=== PATIENT | male | born 1955 | race Caucasian/White ===

== ENCOUNTER 2019-04-10 06:38 | Outpatient (CLI) | payer MEDICARE ==
[~2019-04-10] VITALS: Ht 198.1 cm; Wt 97.3 kg
[2019-04-10 07:00] VITALS: BP 135/63
[2019-04-10] MEDS ORDERED: NS 1,000 ML IV SCH (07:00)
[2019-04-10] MEDS ORDERED: inFLIXimab INJECTION 500 MG in NS 200 ML IV ONE (07:00)
[2019-04-10] MEDS ORDERED: ACETAMINOPHEN 650MG PO PRIOR TO INFUSION PO ONE (07:00)
[2019-04-10] MEDS ORDERED: FILTER 1.2 MICRON (ADULT TPN/MANNITOL/REMICADE) XX ONE (07:00)
[2019-04-10] MEDS ORDERED: diphenhydrAMINE 25 MG CAP PO ONE (07:15)
[2019-04-10 08:01] VITALS: BP 116/55
[2019-04-10 08:40] VITALS: BP 119/61
[2019-04-10 09:00] VITALS: BP 122/60
[2019-04-10 09:20] VITALS: BP 125/66
== END 2019-04-10 09:20 | disposition home or self-care (01) ==
LOC: EDSEX → M INFU 06:38 → MERGE 04-17 07:30
PROVIDERS: ATTEND Internal Medicine Rheumatology
DX: L40.50 Arthropathic psoriasis, unspecified (principal)
CPT/HCPCS: 96413; J1745

== ENCOUNTER → 2019-05-27 | Outpatient (CLI) | payer MEDICARE ==
[2019-05-27 12:36] LABS: BASO # 0.1 10^3/uL (0.0-0.2); BASO % 0.9 % (0.0-1.0); EOS # 0.2 10^3/uL (0.0-0.5); EOS % 3.6 % (0.0-3.0); HEMATOCRIT 35.5 % (42.0-52.0); HEMOGLOBIN 11.6 g/dl (13.5-17.5); LYMPH % 16.1 % (24.0-44.0); MEAN CORPUSCULAR HGB CONC 32.7 g/dl (32.0-36.5); MEAN CORPUSCULAR VOLUME 101.1 fl (80.0-96.0); MONO # 0.6 10^3/uL (0.0-0.8); MONO % 9.1 % (0.0-5.0); NEUTROPHILS # 4.5 10^3/uL (1.5-8.5); NEUTROPHILS % 70.1 % (36.0-66.0); PLATELET COUNT, AUTOMATED 242 10^3/uL (150-450); RED BLOOD COUNT 3.51 10^6/uL (4.30-6.10); WHITE BLOOD COUNT 6.5 10^3/uL (4.0-10.0)
[2019-05-27 13:00] LABS: ALT/SGPT 26 U/L (12-78); BILIRUBIN,TOTAL 0.4 MG/DL (0.2-1.0); BLOOD UREA NITROGEN 12 MG/DL (7-18); C REACTIVE PROTEIN QUANTITATIV 0.81 MG/DL (0.00-0.30); CALCIUM LEVEL 9.7 MG/DL (8.8-10.2); CARBON DIOXIDE LEVEL 29 MEQ/L (21-32); CHLORIDE LEVEL 103 MEQ/L (98-107); CREATININE FOR GFR 1.03 MG/DL (0.70-1.30); GLOMERULAR FILTRATION RATE > 60.0 (>49); GLUCOSE, FASTING 156 MG/DL (70-100); POTASSIUM SERUM 4.8 MEQ/L (3.5-5.1); SODIUM LEVEL 138 MEQ/L (136-145)
== END ==
LOC: M LAB 11:40
PROVIDERS: ATTEND Internal Medicine Rheumatology
DX: L40.50 Arthropathic psoriasis, unspecified (principal)

== ENCOUNTER 2019-05-29 09:48 | Outpatient (CLI) | payer MEDICARE ==
[~2019-05-29] VITALS: Ht 172.7 cm; Wt 97.0 kg
[2019-05-29 09:50] VITALS: BP 127/62
[2019-05-29] MEDS: ACETAMINOPHEN 650MG ER TAB (TYLENOL ARTHRITIS) PO ONE (09:56)
[2019-05-29] MEDS: diphenhydrAMINE 25 MG CAP PO ONE (09:56)
[2019-05-29] MEDS: NS 1,000 ML IV SCH (10:00)
[2019-05-29] MEDS: FILTER 1.2 MICRON (ADULT TPN/MANNITOL/REMICADE) XX ONE (10:17)
[2019-05-29] MEDS: inFLIXimab INJECTION 500 MG in NS 200 ML IV ONE (10:17)
== END 2019-05-29 11:35 | disposition home or self-care (01) ==
LOC: EDSEX → M INFU 09:48 → MERGE 06-12 07:30
PROVIDERS: ATTEND Internal Medicine Rheumatology
DX: L40.50 Arthropathic psoriasis, unspecified (principal)
CPT/HCPCS: 96413; J1745

== ENCOUNTER → 2019-09-02 | Outpatient (CLI) | payer MEDICARE ==
[2019-09-02 11:41] LABS: BASO % 0.7 % (0.0-1.0); EOS # 0.2 10^3/uL (0.0-0.5); HEMATOCRIT 38.2 % (42.0-52.0); HEMOGLOBIN 12.4 g/dl (13.5-17.5); LYMPH % 16.9 % (24.0-44.0); MEAN CORPUSCULAR HEMOGLOBIN 31.6 pg (27.0-33.0); MEAN CORPUSCULAR HGB CONC 32.5 g/dl (32.0-36.5); MEAN CORPUSCULAR VOLUME 97.2 fl (80.0-96.0); MONO # 0.5 10^3/uL (0.0-0.8); MONO % 8.1 % (0.0-5.0); NEUTROPHILS # 4.3 10^3/uL (1.5-8.5); PLATELET COUNT, AUTOMATED 241 10^3/uL (150-450); RED BLOOD COUNT 3.93 10^6/uL (4.30-6.10); WHITE BLOOD COUNT 6.1 10^3/uL (4.0-10.0)
[2019-09-02 12:21] LABS: ALBUMIN 3.9 GM/DL (3.2-5.2); ALT/SGPT 16 U/L (12-78); BILIRUBIN,TOTAL 0.6 MG/DL (0.2-1.0); BLOOD UREA NITROGEN 15 MG/DL (7-18); C REACTIVE PROTEIN QUANTITATIV 0.92 MG/DL (0.00-0.30); CALCIUM LEVEL 9.4 MG/DL (8.8-10.2); CARBON DIOXIDE LEVEL 28 MEQ/L (21-32); CHLORIDE LEVEL 101 MEQ/L (98-107); GLOMERULAR FILTRATION RATE > 60.0 (>49); GLUCOSE, FASTING 265 MG/DL (70-100); POTASSIUM SERUM 4.4 MEQ/L (3.5-5.1); SODIUM LEVEL 136 MEQ/L (136-145); TOTAL PROTEIN 8.1 GM/DL (6.4-8.2)
[2019-09-02 12:50] LABS: VITAMIN B12 LEVEL 1786 PG/ML
[2019-09-02 12:51] LABS: FOLATE > 24.0 NG/ML
[2019-09-02 12:55] LABS: ERYTHROCYTE SEDIMENTATION RATE 41 mm/hr (0-20)
[2019-09-05 14:07] LABS: HOMOCYST(E)INE SERUM 9.6 umol/L (0.0-15.0)
== END ==
LOC: M LAB 11:09
PROVIDERS: ATTEND Internal Medicine Rheumatology
DX: L40.50 Arthropathic psoriasis, unspecified (principal)

== ENCOUNTER 2019-09-05 09:58 | Outpatient (CLI) | payer MEDICARE ==
[~2019-09-05] VITALS: Ht 172.7 cm; Wt 97.0 kg
[2019-09-05] MEDS ORDERED: inFLIXimab INJECTION 500 MG in NS 200 ML IV ONE (10:15)
[2019-09-05] MEDS ORDERED: ACETAMINOPHEN TAB 650MG DOSE (2X325MG) PO ONE (10:15)
[2019-09-05] MEDS ORDERED: NS 1,000 ML IV SCH (10:15)
[2019-09-05 10:40] VITALS: BP 137/63
[2019-09-05] MEDS ORDERED: diphenhydrAMINE 25 MG CAP PO ONE (10:45)
[2019-09-05 10:55] VITALS: BP 124/66
[2019-09-05 11:40] VITALS: BP 122/66
[2019-09-05 12:10] VITALS: BP 120/64
== END 2019-09-05 12:10 | disposition home or self-care (01) ==
LOC: M INFU 09:58
PROVIDERS: ATTEND Internal Medicine Rheumatology
DX: L40.50 Arthropathic psoriasis, unspecified (principal)
CPT/HCPCS: 96413; J1745

== ENCOUNTER 2019-10-17 09:06 | Outpatient (CLI) | payer MEDICARE ==
[~2019-10-17] VITALS: Ht 172.7 cm; Wt 95.8 kg
[2019-10-17] MEDS ORDERED: diphenhydrAMINE INJ 50MG/ML VIAL (J1200) IV PRN (09:30)
[2019-10-17] MEDS ORDERED: methylPREDNISolone INJ 125 MG/2 ML VIAL (J2930) IV PRN (09:30)
[2019-10-17] MEDS ORDERED: diphenhydrAMINE 25MG PO PRIOR TO INFUSION PO ONE (09:30)
[2019-10-17] MEDS ORDERED: EPINEPHrine INJ 1 MG/ML 1ML VIAL IM PRN (09:30)
[2019-10-17] MEDS ORDERED: inFLIXimab INJECTION 500 MG in NS 200 ML IV ONE (09:30)
[2019-10-17] MEDS ORDERED: ALBUTEROL SULFATE 2.5 MG/0.5 ML INH NEB SOLN INH PRN (09:30)
[2019-10-17] MEDS ORDERED: ACETAMINOPHEN 650MG PO PRIOR TO INFUSION PO ONE (09:30)
== END 2019-10-17 11:00 | disposition home or self-care (01) ==
LOC: M INFU 09:06
PROVIDERS: ATTEND Internal Medicine Rheumatology
DX: L40.50 Arthropathic psoriasis, unspecified (principal)
CPT/HCPCS: 96365; J1745

== ENCOUNTER 2019-11-28 08:56 | Outpatient (CLI) | payer MEDICARE ==
[~2019-11-28] VITALS: Ht 172.7 cm; Wt 95.8 kg
[2019-11-28] MEDS ORDERED: ALBUTEROL SULFATE 2.5 MG/0.5 ML INH NEB SOLN INH PRN (10:00)
[2019-11-28] MEDS ORDERED: diphenhydrAMINE 25MG PO PRIOR TO INFUSION PO ONE (10:00)
[2019-11-28] MEDS ORDERED: diphenhydrAMINE INJ 50MG/ML VIAL (J1200) IV PRN (10:00)
[2019-11-28] MEDS ORDERED: inFLIXimab INJECTION 500 MG in NS 200 ML IV ONE (10:00)
[2019-11-28] MEDS ORDERED: NS 1,000 ML IV SCH (10:00)
[2019-11-28] MEDS ORDERED: EPINEPHrine INJ 1 MG/ML 1ML VIAL IM PRN (10:00)
[2019-11-28] MEDS ORDERED: methylPREDNISolone INJ 125 MG/2 ML VIAL (J2930) IV PRN (10:00)
[2019-11-28] MEDS ORDERED: ACETAMINOPHEN 650MG PO PRIOR TO INFUSION PO ONE (10:00)
== END 2019-11-28 10:50 | disposition home or self-care (01) ==
LOC: M INFU 08:56
PROVIDERS: ATTEND Internal Medicine
DX: L40.50 Arthropathic psoriasis, unspecified (principal)
CPT/HCPCS: 96413; J1745

== ENCOUNTER 2020-01-09 09:35 | Outpatient (CLI) | payer MEDICARE ==
[~2020-01-09] VITALS: Ht 172.7 cm; Wt 97.0 kg
[2020-01-09 09:45] VITALS: BP 145/65
[2020-01-09] MEDS ORDERED: diphenhydrAMINE 25MG CAP PO ONE (09:45)
[2020-01-09] MEDS ORDERED: diphenhydrAMINE 50MG/ML VIAL (J1200) IV PRN (09:45)
[2020-01-09] MEDS ORDERED: methylPREDNISolone INJ 125 MG/2 ML VIAL (J2930) IV PRN (09:45)
[2020-01-09] MEDS ORDERED: ALBUTEROL SULFATE 2.5 MG/0.5 ML INH NEB SOLN INH PRN (09:45)
[2020-01-09] MEDS ORDERED: EPINEPHrine INJ 1 MG/ML 1ML AMP IM PRN (09:45)
[2020-01-09] MEDS ORDERED: ACETAMINOPHEN TAB 650MG DOSE (2X325MG) PO ONE (09:45)
[2020-01-09] MEDS ORDERED: inFLIXimab INJECTION 500 MG in NS 200 ML IV ONE (09:45)
[2020-01-09 10:22] VITALS: BP 145/65
[2020-01-09 10:30] VITALS: BP 146/63
[2020-01-09 11:30] VITALS: BP 131/67
== END 2020-01-09 11:30 | disposition home or self-care (01) ==
LOC: M INFU 09:35
PROVIDERS: ATTEND Internal Medicine
DX: L40.50 Arthropathic psoriasis, unspecified (principal)
CPT/HCPCS: 96413; J1745

== ENCOUNTER 2020-02-20 09:42 | Outpatient (CLI) | payer MEDICARE ==
[~2020-02-20] VITALS: Ht 172.7 cm; Wt 97.0 kg
[2020-02-20] MEDS ORDERED: ACETAMINOPHEN TAB 650MG DOSE (2X325MG) PO ONE (10:00)
[2020-02-20 10:06] VITALS: BP 136/62
[2020-02-20 10:14] VITALS: BP 136/62
[2020-02-20 11:00] VITALS: BP 139/72
[2020-02-20] MEDS ORDERED: EPINEPHrine INJ 1 MG/ML 1ML AMP IM PRN (11:00)
[2020-02-20] MEDS ORDERED: diphenhydrAMINE 50MG/ML VIAL (J1200) IV PRN (11:00)
[2020-02-20] MEDS ORDERED: methylPREDNISolone INJ 125 MG/2 ML VIAL (J2930) IV PRN (11:00)
[2020-02-20] MEDS ORDERED: ALBUTEROL SULFATE 2.5 MG/0.5 ML INH NEB SOLN INH PRN (11:00)
[2020-02-20] MEDS ORDERED: diphenhydrAMINE 25MG CAP PO ONE (11:00)
[2020-02-20] MEDS ORDERED: inFLIXimab INJECTION 500 MG in NS 200 ML IV ONE (11:00)
[2020-02-20 11:36] VITALS: BP 126/89
== END 2020-02-20 11:40 | disposition home or self-care (01) ==
LOC: M INFU 09:42
PROVIDERS: ATTEND Internal Medicine
DX: L40.50 Arthropathic psoriasis, unspecified (principal)
CPT/HCPCS: 96413; J1745

== ENCOUNTER 2020-04-02 10:30 | Outpatient (CLI) | payer MEDICARE ==
[~2020-04-02 10:30] MED LIST: diphenhydrAMINE 25MG CAP As Ordered ONE; inFLIXimab 100MG/10ML VIAL (REMICADE) J1745 PER 10MG ONE
[2020-04-02] MEDS ORDERED: ACETAMINOPHEN 325 MG TAB As Ordered ONE (10:31)
[2020-04-02] MEDS ORDERED: diphenhydrAMINE 25MG CAP As Ordered ONE (10:34)
[2020-05-06] MEDS ORDERED: VITRTAB4 PO (10:00)
[2020-05-06] MEDS ORDERED: B-122500 PO (10:00)
[2020-05-06] MEDS ORDERED: GLYB5TA PO (10:00)
[2020-05-06] MEDS ORDERED: HYDR1SOL PO (10:00)
[2020-05-06] MEDS ORDERED: TOPR25TA PO (10:00)
[2020-05-06] MEDS ORDERED: METF10004 PO (10:00)
[2020-05-06] MEDS ORDERED: CLOB0.0548 TOP (10:00)
[2020-05-06] MEDS ORDERED: LOSA25TA14 PO (10:00)
[2020-05-06] MEDS ORDERED: OSTE1TAB2 PO (10:00)
[2020-05-06] MEDS ORDERED: INFL10VL IV (10:00)
[2020-05-06] MEDS ORDERED: ATOR1TAB21 PO (10:00)
[2020-05-06] MEDS ORDERED: NEXI40CA PO (10:00)
[2020-05-06] MEDS ORDERED: SULF500T2 PO (10:00)
[2020-05-06] MEDS ORDERED: ASPI81TA86 PO (10:00)
[2020-05-28] MEDS ORDERED: MAGN400C PO (15:50)
[2020-06-18] MEDS ORDERED: ZOFR4TAB16 PO (14:38)
[2020-06-18] MEDS ORDERED: PROC10TA4 PO (14:38)
[2020-06-22] MEDS ORDERED: MAGICMW SSP (11:17)
[2020-07-16] MEDS ORDERED: HYDR1SOL PO (11:21)
== END 2020-04-02 12:35 | disposition home or self-care (01) ==
LOC: M INFU 10:30
PROVIDERS: ATTEND Internal Medicine
DX: L40.50 Arthropathic psoriasis, unspecified (principal)
CPT/HCPCS: 96413; 96415; J1745

== ENCOUNTER → 2020-04-14 | Outpatient (CLI) | payer MEDICARE ==
[~2020-04-14] MED LIST changes: +ASPI81TA86 PO; +ATOR1TAB21 PO; +B-122500 PO; +CLOB0.0548 TOP; +GLYB5TA PO; +HYDR1SOL PO; +INFL10VL IV; +LOSA25TA14 PO; +MAGICMW SSP; +MAGN400C PO; +METF10004 PO; +NEXI40CA PO; +OSTE1TAB2 PO; +PROC10TA4 PO; +SULF500T2 PO; +TOPR25TA PO; +VITRTAB4 PO; +ZOFR4TAB16 PO; -diphenhydrAMINE 25MG CAP As Ordered ONE; -inFLIXimab 100MG/10ML VIAL (REMICADE) J1745 PER 10MG ONE
--- NOTE | 2020-05-26 08:41 | REP ---
WHOLE BODY PET-CT SCAN: Delay inn reporting results from malfunction of the hospital computer system from malware/ransomeware. TECHNIQUE: Scanning is performed from the vertex of the calvarium to the feet. COMPARISON: Outside CT study of the neck from [facility] dated 04/06/20 that identified a 3 cm soft tissue mass in the soft palate on the right. FINDINGS: NECK AND SUPRACLAVICULAR AREAS: On the CT accompanying the PET scan today, the mass in the soft palate on the right is again identified. On the PET scan, this mass demonstrates hypermetabolic activity with a maximal standard uptake value of 9.03. There are no other hypermetabolic foci in the neck or supraclavicular areas. CHEST: There are no hypermetabolic foci. ABDOMEN, PELVIS AND LOWER EXTREMITIES: There are no hypermetabolic foci. IMPRESSION: The patient's known mass of the soft palate is hypermetabolic. There are no other hypermetabolic foci. The study is performed with 8.44 mCi of F18 FDG. MTDD
== END ==
LOC: M PLARAD 12:00
PROVIDERS: ATTEND Otolaryngology
DX: D37.05 Neoplasm of uncertain behavior of pharynx (principal)
CPT/HCPCS: 78816; A9552

== ENCOUNTER → 2020-05-06 | Outpatient (CLI) | payer MEDICARE ==
--- NOTE | 2020-05-06 12:26 | RADONC.CN ---
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 Diagnosis/Treatment History Oncologic History He has a remote history of tobacco use,having quit 24 years ago. He presented to his PCP Dr. Dai due to concerns of dysphagia and difficulty breathing when he turned his head from side to side. A CT scan was done on 04/06/20 which showed a large lesion in the soft palate on the right. He was referred to Dr. Moser who ordered A PET-CT done 04/17/20 which showed uptake in the lesion in the soft palate and tonsillar fossa on the right without concerning adenopathy. Dr. Moser biopsied the lesion on 04/21/20 and pathology revealed an HPV+ SCC. Interval History Reports he feels well today overall. He has mild dysphagia and is on a soft diet in part because of his poor dentition. He has lost 4 lbs in total since the diagnosis, his appetite is preserved however. He has mild throat pain when he swallows. He has a history of working in the [employer] industry. Past Medical History: DMII GERD HTN Psoriatic arthritis Past Surgical History: OPX biopsy 04/21/20 Family History: Non-contributory Social History: Former smoker quit 20+ years ago, 24 pack year history, does not drink alcohol Allergies / Meds Allergies: Coded Allergies: No Known Allergies (Unverified , 03/13/19) Home Meds Reported Medications Hydrocodone/Acetaminophen (Hydrocodone-Acetamn 7.5-325/15) 118 Ml Solution, 15 ML PO Q4-6HP PRN for pain MDD 90 Milliliter(s) for 7 Days, #630 ML 05/06/20 Sulfasalazine (Sulfasalazine) 500 Mg Tablet, 1.5 GRAMS PO BID for 30 Days, #120 TAB 20 Metoprolol Succinate (Toprol Xl) 25 Mg Tab.er.24h, 1 TAB PO DAILY for 30 Days, #30 TAB 20 Metformin HCl (Metformin HCl) 1,000 Mg Tablet, 1 TAB PO BID for 30 Days, #60 TAB 20 Losartan Potassium (Losartan Potassium) 25 Mg Tablet, 1 TAB PO DAILY for 30 Days, #30 TAB 9/2/20 Infliximab Injection (Remicade) 100 Mg Vial, 100 MG IV, VIAL 05/06/20 Glyburide (Glyburide) 5 Mg Tablet, 2 TAB PO BID for 30 Days, #60 TAB 20 Esomeprazole Magnesium (Nexium) 40 Mg Capsule.dr, 1 CAP PO DAILY for 30 Days, #30 CAP 05/06/20 Cyanocobalamin (Vitamin B-12) (Vitamin B12) 2,500 Mcg Tablet, 1 TAB PO DAILY for 30 Days, #30 TAB 20 Clobetasol Propionate/Emoll (Clobetasol Emollient 0.05% Crm) 0.05% 15GM Cream..g., 1 APLCT TOP BID for 15 Days, #60 GRAM 05/06/20 Vit D3-Vit K/Berberine/Hops (Ostera Tablet) 1 Each Tablet, 1 TAB PO, TAB 05/06/20 Atorvastatin Calcium (Atorvastatin Calcium) 20 Mg Tablet, 1 TAB PO DAILY for 30 Days, #30 TAB 20 Aspirin (Aspir 81) 81 Mg Tablet.dr, 1 TAB PO DAILY for pain for 30 Days, #30 TAB 05/06/20 Iron,Carbonyl/Ascorbic Acid (Vitron-C Tablet) 1 Each Tablet.dr, 1 TAB PO DAILY for 30 Days, #30 TAB 20 Review of Systems General: Reports: Fatigue, Normal Appetite; Denies: Chills, Night Sweats Constitutional: Reports: Weight Loss; Denies: Weakness Eyes: Denies: Pain, Vision change HEENT: Reports: Dysphagia, Sore Throat; Denies: Head Aches, Ear Pain, Sinus Congestion Skin: Denies: Rash, Lesions, Jaundice, Bruising, Other Pulmonary: Denies: Dyspnea, Cough Cardiovascular: Denies: Chest Pain, Palpitations, Edema Gastrointestinal: Denies: Nausea, Vomiting, Abdominal Pain, Diarrhea Genitourinary: Denies: Dysuria, Frequency, Incontinence Hematologic: Denies: Bruising, Petecchia, Enlarged Lymph Nodes Musculoskeletal: Denies: Neck pain, Back pain Neurological: Denies: Weakness, Numbness, Incoordination Psych: Reports: Mood Normal; Denies: Memory Issues, Thoughts of Self Harm General Exam: Positive: Alert, Cooperative, No Acute Distress Eye Exam: Positive: PERRLA, EOMI ENT EXAM: Positive: Mucous membr. moist/pink, Tongue Midline, Nares Patent, Other ENT (Teeth present (5-6) are broken, most extracted previously ); Negative: Pharynx Normal (In the right tonsillar fossa and soft palate there is a large ulcerated lesion with adherent white mucus, no ad bleeding noted. There are no mucosal lesions or floor of mouth lesions present on manual exam. I was unable to palpate the BOT due to a brisk gag. ) Neck Exam: Negative: Thyromegaly, Lymphadenopathy Chest Exam: Positive: Clear to auscultation, Normal air movement Heart Exam: Positive: Rate Normal, Regular Rhythm Abdomen Exam: Positive: Soft; Negative: Tenderness, Mass Extremity Exam: Negative: Edema, Tenderness Skin Exam: Positive: Nl turgor and temperature; Negative: Rash Neuro Exam: Positive: Normal Gait, Normal Speech, Cranial Nerves 3-12 NL Psych Exam: Positive: Mental status NL, Mood NL, Memory Intact Other Physical Findings Flexible laryngoscopy: After obtaining verbal consent flexible laryngoscopy was performed. The right nare was anesthetized with cetacaine and the scope was introduced, the patient felt immediate discomfort so the scope was withdrawn, a moment was taken and the scope then reintroduced and was better tolerated. The nasopharynx was examined and showed no involvement by tumor on the right. The scope was passed into the pharynx and the posterior pharyngeal wall was free of lesions and had adherent mucus. The BOT BL was uninvolved by tumor. The epiglottis was sharp and mobile, the BL pyriform sinuses were clear, the larynx was mobile and free of lesions. The scope was slowly withdrawn without incident. The patient tolerated the procedure well. Diagnostic and Laboratory Diagnostic Review Radiologic images, relevant labs and pathology reports were personally reviewed and discussed with Mr. Sidhu. Assessment and Plan Impression Mr. Sidhu is a 64 year old male with a history of P16+ T3N0M0 SCC of the right soft palate and tonsillar fossa who was referred to the Department of Radiation Oncology for consideration of chemoradiation. Stage Oropharynx HPV+ SCC [id number] Stage II Performance Status ECOG 0 Plan We had an extensive discussion with Mr. Sidhu regarding the diagnosis at hand and available therapeutic options. He has a locally advanced soft palate primary by my estimation at least 5 cm in greatest extent and involving the tonsillar fossa on the right as well. He has mild symptoms attributable to this lesion and no significant weight loss. His remaining dentition is poor and will need to be extracted prior to treatment. I do not think he needs a PEG tube to start as he can swallow adequately. His nutrition and hydration will need to be optimized. Thus we will give him ensure today and associate counsel on adding high calorie foods. I recommend 70 Gy in 35 fractions to the primary with a lower dose to the bilateral elective necks. We will use VMAT to spare the salivary glands and pharyngeal constrictors as able. Concurrent weekly cisplatin will be given due to the bulkiness of the lesion. We discussed the logistics of receiving radiation therapy in detail including the need for a 1-time planning session. Which will occur approximately 1 week following dental extractions which he intends to pursue at [facility] in [place]. We reviewed the side effects of treatment including fatigue, xerostomia, dysphagia, odynophagia, weight loss, taste loss, fibrosis and skin reaction. After discussing the risks, benefits and alternatives to radiation therapy, Mr. Sidhu was amenable to pursuing radiotherapy. All questions were answered to the patient's satisfaction. We instructed the patient that if there were any questions,concerns or changes in clinical status in the interim to contact us. Recommendations 70 Gy 35 fractions with VMAT Simulation pending dental clearance JERE VARELA MD May 06, 2020 12:26
== END ==
LOC: M ONCR 09:19
PROVIDERS: ATTEND General Practice
DX: C05.1 Malignant neoplasm of soft palate (principal); C10.9 Malignant neoplasm of oropharynx, unspecified; E11.9 Type 2 diabetes mellitus without complications; I10 Essential (primary) hypertension; K21.9 Gastro-esophageal reflux disease without esophagitis; R53.83 Other fatigue; Z87.891 Personal history of nicotine dependence

== ENCOUNTER → 2020-06-03 | Outpatient (RCR) | payer MEDICARE | LOC: M ONCR 13:41 | PROVIDERS: ATTEND General Practice | DX: C05.1 Malignant neoplasm of soft palate (principal) ==

== ENCOUNTER 2020-07-03 10:28 | Outpatient (RCR) | payer MEDICARE | END 2020-07-04 | LOC: M ONCR 10:28 | PROVIDERS: ATTEND General Practice | DX: C05.1 Malignant neoplasm of soft palate (principal) ==

== ENCOUNTER → 2020-08-03 | Outpatient (RCR) | payer MEDICARE | LOC: M ONCR 07-06 10:38 | PROVIDERS: ATTEND General Practice | DX: C05.1 Malignant neoplasm of soft palate (principal) ==

== ENCOUNTER 2020-08-07 10:35 | Outpatient (RCR) | payer MEDICARE ==
[2020-08-12] MEDS ORDERED: HYDR1SOL PO (12:26)
[2020-08-21] MEDS ORDERED: HYDR1SOL PO (10:26)
[2020-09-01] MEDS ORDERED: MAGICMW SSP (15:30)
[2020-09-02] MEDS ORDERED: OXYC-141 PO (14:55)
--- NOTE | 2020-09-02 15:02 | RADENCPD ---
Date/Time of Encounter Date of Encounter: Sep 02, 2020 Time of Encounter: 14:59 Encounter Spoke to Tayo, he has been eating with greater ease, however, he still has pain in the throat and some ulceration around his tonsils. His magic mouthwash and liquid norco are helpful but the pain peaks between doses. He should be healing up by now from a mucositis standpoint so I would like to see him and asses his mouth. For pain I will give him a short supply of ER oxycodone, so that he is not having the peaks in pain. I checked his iStop and there are no red flags. I will see him next week. His PET CT is in October as previously scheduled. JERE VARELA MD Sep 02, 2020 15:02
== END 2020-09-03 ==
LOC: M ONCR 10:35
PROVIDERS: ATTEND General Practice
DX: C05.1 Malignant neoplasm of soft palate (principal)

== ENCOUNTER → 2020-09-17 | Outpatient (CLI) | payer MEDICARE ==
[~2020-09-17] MED LIST changes: +OXYC-141 PO
--- NOTE | 2020-09-17 11:47 | RADENCPD ---
Date/Time of Encounter Date of Encounter: Sep 17, 2020 Time of Encounter: 11:38 Encounter Tayo is here for a 1 month global follow up s/p chemoradiation for his T4N0M0 soft palate SCC 70 Gy in 35 fractions completed 08/07/20. He is feeling well overall. Getting dentures fitted next week. He has no resi dual pain or mucositis. He is swallowing without difficulty. Has mild trismus type pain when he opens wide and sometimes mild discomfort in the midline throat when taking solid foods. He finds the magic mouthwash helpful. Tastes are coming back slowly. Appetite is good, he can't wait to eat prime rib once he gets his dentures. Has sensation of BL ear fullness. Had a good holiday in [facility] visiting family. VS Wt 157.8 lbs (from 182 prior to Tx) T 98 P 116 RR 18 BP 117/75 O2 96% Pain 0 Fatigue 0 Exam: Completely resolved radiodermatitis BL necks, no lingering hyperpigmentation, there is expected submental lymphedema. OPX is clear with no thrush or mucositis, the bulky right sided palatal tumor has regressed, there is only pale mucosa and a cavitary non-ulcerated defect remaining. Uvula deviates to the left and is blunted. There is no trismus. Assessment/Plan: Tayo is doing very well, he has recovered from all the acute effects of chemoradiation. His ear fullness is likely eustachian tube dysfunc tion from RT and may resolve spontaneously over the ensuing months or remain chronic. His tastes should come back slowly and we discussed a good goal is to maintain a healthy weight at this point, which he is at currently. I will see him back for his 3 month PET-CT. I will perform laryngoscopy at that time. I have refilled his magic mouthwash JERE VARELA MD Sep 17, 2020 11:47
== END ==
LOC: M ONCR 10:47
PROVIDERS: ATTEND Radiology Radiation Oncology
DX: C05.1 Malignant neoplasm of soft palate (principal)

== ENCOUNTER → 2020-10-16 | Outpatient (CLI) | payer MEDICARE ==
[~2020-10-16] MED LIST changes: +FLUC10TA PO; -GLYB5TA PO; +GLYB5TAB6 PO; +MORP-69 PO
--- NOTE | 2020-10-16 14:49 | RADENCPD ---
Date/Time of Encounter Date of Encounter: Oct 16, 2020 Time of Encounter: 14:31 Encounter Tayo came in for a follow today for concern of ongoing oropharyngeal pain which continues to affect his eating. He is not having dysphagia with this per se, he is able to eat meatloaf, bread and pork chops without choking. He has lost weight recently, he was asked to switch from ensure to glucerna by his primary as his BG control has been poor. He has been taking liquid norco all along and BLM with some positive effect, but he feels that these are largely inadequate when he is eating particularly because this is when the pain is worst. He also has ringing in his ears and hearing loss new since chemoradiation. He would like audiology evaluation. Objective: Wt 149 Lbs (-50 lbs from June 2020) T 98.6 P 120 RR 18 BP 99/69 O2 99% Pain 4 Fatigue 0 Neck is supple, skin lax, minimal submental edema No palpable cervical adenopathy OPX has thrush present dorsal tongue and right gingivobuccal sulcus In the right posterior oropharynx there is no discernible tumor or ulceration but rather a large defect lined by pale mucosa/scar. There is green mucus adherent to this. There is no palpable tumor in the BL tongue bases, buccal mucosa, tongue, FOM and in the region of the prior tumor. Assessment: Ongoing oropharyngeal pain, active thrush, excellent response of primary with signs of active scar formation in the void previously occupied by bulky tumor. I think he would benefit from a long acting narcotic for now which should help him eat more comfortably. I will also treat the thrush and refer to audiology for eval of his hearing loss. Plan: Stop liquid norco Start ER morphine 15 mg BID Continue BLM with meals Diflucan 100 mg x 14 days Audiology referral PET-CT and Follow up in November as previously scheduled JERE VARELA MD Oct 16, 2020 14:49
== END ==
LOC: M ONCR 13:33
PROVIDERS: ATTEND General Practice
DX: C05.1 Malignant neoplasm of soft palate (principal)

== ENCOUNTER → 2020-10-26 | Outpatient (CLI) | payer MEDICARE ==
--- NOTE | 2020-10-28 17:34 | REP ---
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 COMPARISON: Comparison PET-CT study is from April 14, 2020. Comparison soft tissue neck CT April 06, 2020.. TECHNIQUE: Approximately 45 minutes following the intravenous injection of a 15.90 mCi dose of F-18 FDG, three-dimensional PET scintigraphy is acquired from the skull base to the proximal thighs. Triplanar noncontrast CT scanning is acquired through the same anatomic range for attenuation correction, and image registration with scan parameters optimized to minimize radiation exposure to the patient. PET scintigraphy and CT datasets were fused and displayed on a workstation with multiplanar and projection display capability. FINDINGS: Head and neck soft tissues are unremarkable. The previously noted right tonsillar hypermetabolic mass is resolved. No abnormal hypermetabolic uptake is seen in the head and neck soft tissues. No abnormal hypermetabolic uptake is seen within the chest. No pulmonary parenchymal, hilar or mediastinal puma uptake is seen. In the abdomen and pelvis, normal hepatic, splenic, gastrointestinal, and genitourinary FDG accumulation is seen. IMPRESSION: Negative PET scintigraphy. Right tonsillar lesion no longer apparent. No abnormal hypermetabolic uptake. <Electronically signed by Francisco Downs > 10/28/20 [id number]
== END ==
LOC: M PLARAD 10:00
PROVIDERS: ATTEND General Practice
DX: C09.0 Malignant neoplasm of tonsillar fossa (principal)
CPT/HCPCS: 78815; A9552

== ENCOUNTER → 2020-11-11 | Outpatient (CLI) | payer MEDICARE ==
--- NOTE | 2020-11-11 15:35 | RADONC ---
Radiation Oncology Hx/FUP Radiation Oncology Hx/FUP Date of Service: Nov 11, 2020 Pt Identifier Ryan Sidhu is a 64 year old male with a history of smoking and a biopsy- proven HPV+ [id number] SCC of the right soft palate. He completed chemoradiation 70 Gy in 35 fractions on 08/07/20. He is seen today for surveillance and survivorship care. Diagnosis/Treatment History Oncologic History He has a remote history of tobacco use,having quit 24 years ago. He presented to his PCP Dr. Dai due to concerns of dysphagia and difficulty breathing when he turned his head from side to side. A CT scan was done on 04/06/20 which showed a large lesion in the soft palate on the right. He was referred to Dr. Moser who ordered A PET-CT done 04/17/20 which showed uptake in the lesion in the soft palate and tonsillar fossa on the right without concerning adenopathy. Dr. Moser biopsied the lesion on 04/21/20 and pathology revealed an HPV+ SCC. He underwent chemoradiation 70 Gy in 35 fractions with weekly cisplatin from 06/17/20-08/07/20. Recent data: 10/26/20 PET-CT FINDINGS: Head and neck soft tissues are unremarkable. The previously noted right tonsillar hypermetabolic mass is resolved. No abnormal hypermetabolic uptake is seen in the head and neck soft tissues. No abnormal hypermetabolic uptake is seen within the chest. No pulmonary parenchymal, hilar or mediastinal puma uptake is seen. In the abdomen and pelvis, normal hepatic, splenic, gastrointestinal, and genitourinary FDG accumulation is seen. IMPRESSION: Negative PET scintigraphy. Right tonsillar lesion no longer apparent. No abnormal hypermetabolic uptake. Survivorship Test Due Next Last result Notes TSH, T4 6m post-tx, then q1y 03/2021 Carotid US q10 y post-tx 2030 Smoking cessation Assess annually if applicable N/A Quit previously CXR or screening CT q1y once CR confirmed 2021 CBC,CMP, Lipids q1y 03/2021 Interval History Tayo is feeling well. Weight is up. Eating all foods without much difficulty. Occasionally taking liquid norco, using magic mouthwash but less frequently. He has no dry mouth, or mouth pain. He does have some hearing loss in the right ear, continuing after treatment, he has an audiology appointment upcoming. Interestingly since his remicade was held (for RA) prior to diagnosis he has not had a recrudescence of his joint pain. Current Therapy Surveillance Stage Oropharynx HPV+ SCC [id number] Stage II Social History: Former smoker quit 20+ years ago, 24 pack year history, does not drink alcohol Allergies / Meds Allergies: Coded Allergies: No Known Allergies (Unverified , 03/13/19) Home Meds Active Scripts Morphine Sulfate (Morphine Sulfate ER) 15 Mg Tablet.er, 1 TAB PO BID MDD 2 Tablet(s), #60 TAB Prov:JERE VARELA MD 10/16/20 Magic Mouthwash (First-Mouthwash Blm) 1 Ea Susp, 10 ML SSP QID PRN for Throat pain, #240 ML 5 Refills (Diphenhydramine/maalox/lidocaine 1:1:1) May compound if kit unavailable/not covered by insurance Prov:JERE VARELA MD 09/17/20 Reported Medications Esomeprazole Magnesium (Nexium) 40 Mg Capsule.dr, 1 CAP PO DAILY for 30 Days, #30 CAP 05/06/20 Discontinued Scripts Fluconazole (Diflucan) 100 Mg Tablet, 1 TAB PO DAILY for yeast infection for 14 Days, #15 TAB Take 2 tabs day 1, then 1 tab daily to complete 14 days. Prov:JERE VARELA MD 10/16/20 Review of Systems Review of Systems Constitutional: Denies: Chills, Fever, Weakness, Weight Loss Eyes: Denies: Pain HEENT: Denies: Head Aches, Ear Pain, Dysphagia, Post Nasal Drip, Sore Throat Skin: Denies: Rash Pulmonary: Denies: Dyspnea, Cough Cardiovascular: Denies: Chest Pain, Palpitations Gastrointestinal: Denies: Abdominal Pain Endocrine: Denies: Cold Intolerance Musculoskeletal: Denies: Neck pain, Shoulder pain, Back pain Neurological: Denies: Weakness, Numbness Psych: Reports: Mood Normal Physical Examination Vital Signs Wt 155 lbs (from 149 on 10/16/20) T 98 P 102 RR 18 BP 114/72 O2 99% Pain 0 Fatigue 0 General Exam: Positive: Alert, Cooperative, No Acute Distress Eye Exam: Positive: PERRLA, EOMI ENT EXAM: Positive: Atraumatic, Mucous membr. moist/pink, Tongue Midline, Nares Patent, Other ENT (Oral cavity exam: There are no mucosal lesions visible on expection, he is edentulous, there is no thrush. There are no FOM, tonsillar, or BOT lesions on palpation. ); Negative: Pharynx Normal (There is a defect in the region of the prior tumor in the right soft palate ~ 1cm annular, there is pale mucosa surrounding this without mass. ) Neck Exam: Positive: Supple; Negative: Lymphadenopathy Heart Exam: Positive: Rate Normal Abdomen Exam: Positive: Soft Extremity Exam: Negative: Edema Skin Exam: Positive: Nl turgor and temperature Neuro Exam: Positive: Normal Gait, Normal Speech, Cranial Nerves 3-12 NL Psych Exam: Positive: Mental status NL Other Physical Findings Laryngoscopy: The patient provided verbal consent to be scoped. Cetacaine was introduced in the left nostril for anesthesia. The scope was passed easily to the left nasopharynx, there were no lesions. The scope was passed to the oropharynx and there was clear mucus adherent to the posterior pharyngeal wall. The BL BOT were clear with normal appearing mucosa. The BL pyriform sinuses were clear. The epiglottic margin was sharp. The larynx was freely mobile on phonation without any cord asymmetry or lesions noted. The scope was withdrawn and the patient tolerated the procedure well. Diagnostic and Laboratory Diagnostic Review Radiologic images, relevant labs and pathology reports were personally reviewed and discussed with Mr. Sidhu. Assessment and Plan Impression Assessment Mr. Sidhu is a 64 year old male with a history of smoking and a biopsy-proven HPV+ [id number] SCC of the right soft palate. He completed chemoradiation 70 Gy in 35 fractions on 08/07/20. He is seen today for surveillance and survivorship care. He is doing well with a CR on PET-CT as well as FIORDALIZA on comprehensive exam today. Symptomatically he has improved to near pre-treatment baseline. He is a healthy weight. He has no joint pain which is interesting since he has been on Remicade for 20 years, and this was stopped for chemoradiation without resumption. It is possible his weight loss has improved the condition of his joints. He has a manager metal and a follow up in the coming months to discuss this. He also has some hearing loss in the right ear this is likely due to eustachian tube dysfunction from treatment +/- stebbins effect. He is going for hearing assessment in the next week. He will be due for TFTs at next visit as well as another surveillance exam. Performance Status ECOG 0 Plan Follow up in 3 months TFTs at next visit Mr. Sidhu was encouraged to call with questions or concerns in the interim period. Billing Statement Total time of [34] minutes was spent preparing for the visit [3], obtaining HPI [4], examining the patient [7], reviewing diagnostic tests [3], discussing management options [5], coordinating care [2], and writing this note [10]. JERE VARELA MD Nov 11, 2020 15:35
== END ==
LOC: M ONCR 12:53
PROVIDERS: ATTEND General Practice
DX: C05.1 Malignant neoplasm of soft palate (principal)

== ENCOUNTER → 2021-02-17 | Outpatient (CLI) | payer MEDICARE ==
[~2021-02-17] MED LIST changes: +LOSA25TA13 PO; -LOSA25TA14 PO; -PROC10TA4 PO; +PROC10TA5 PO
[2021-02-17 15:11] LABS: BASO % 0.6 % (0.0-1.0); EOS # 0.2 10^3/uL (0.0-0.5); EOS % 2.6 % (0.0-3.0); HEMATOCRIT 38.2 % (42.0-52.0); HEMOGLOBIN 12.6 g/dl (13.5-17.5); LYMPH # 0.6 10^3/uL (1.5-5.0); LYMPH % 9.1 % (24.0-44.0); MEAN CORPUSCULAR HEMOGLOBIN 30.3 pg (27.0-33.0); MEAN CORPUSCULAR VOLUME 91.8 fl (80.0-96.0); MONO # 0.6 10^3/uL (0.0-0.8); MONO % 9.7 % (2.0-8.0); NEUTROPHILS % 77.4 % (36.0-66.0); PLATELET COUNT, AUTOMATED 218 10^3/uL (150-450); RED BLOOD COUNT 4.16 10^6/uL (4.30-6.10); WHITE BLOOD COUNT 6.5 10^3/uL (4.0-10.0)
[2021-02-17 15:18] LABS: ALBUMIN 3.7 GM/DL (3.2-5.2); ALT/SGPT 20 U/L (12-78); BILIRUBIN,TOTAL 0.4 MG/DL (0.2-1.0); BLOOD UREA NITROGEN 32 MG/DL (7-18); CALCIUM LEVEL 9.8 MG/DL (8.8-10.2); CARBON DIOXIDE LEVEL 34 MEQ/L (21-32); CHLORIDE LEVEL 100 MEQ/L (98-107); CREATININE FOR GFR 0.93 MG/DL (0.70-1.30); FREE T4 0.92 NG/DL (0.76-1.46); GLOMERULAR FILTRATION RATE > 60.0 (>49); GLUCOSE, FASTING 99 MG/DL (70-100); POTASSIUM SERUM 4.4 MEQ/L (3.5-5.1); SODIUM LEVEL 136 MEQ/L (136-145); TOTAL PROTEIN 7.5 GM/DL (6.4-8.2)
== END ==
LOC: M ONCR 12:51
PROVIDERS: ATTEND General Practice
DX: C05.1 Malignant neoplasm of soft palate (principal); E11.9 Type 2 diabetes mellitus without complications; Z87.891 Personal history of nicotine dependence; Z92.3 Personal history of irradiation
CPT/HCPCS: 31575; 36415; 80053; 84439; 84443; 85025; G0463

== ENCOUNTER → 2021-02-25 | Outpatient (CLI) | payer MEDICARE ==
[~2021-02-25] MED LIST changes: +ISOVUE-370 76% 100ML VIAL As Ordered ONE; -LOSA25TA13 PO; +LOSA25TA14 PO; +PROC10TA4 PO; -PROC10TA5 PO
--- NOTE | 2021-02-25 18:11 | REPVR ---
PROCEDURE INFORMATION: Exam: CT Neck With Contrast Exam date and time: 02/25/2021 5:59 PM Age: 65 years old Clinical indication: Condition or disease; Cancer; Throat; Prior surgery; Additional info: Soft palete CA ? mets TECHNIQUE: Imaging protocol: Computed tomography images of the neck with contrast. Radiation optimization: All CT scans at this facility use at least one of these dose optimization techniques: automated exposure control; mA and/or kV adjustment per patient size (includes targeted exams where dose is matched to clinical indication); or iterative reconstruction. Contrast material: ISOVUE 370; Contrast volume: 75 ml; Contrast route: INTRAVENOUS (IV); COMPARISON: No relevant prior studies available. FINDINGS: Nasopharynx: Unremarkable. Oropharynx: Unremarkable. No significant tonsillar enlargement. Hypopharynx: Unremarkable. Larynx: Unremarkable. Normal epiglottis. Retropharyngeal space: Unremarkable. Submandibular/Parotid glands: Normal. Glands are normal in size. Thyroid: Normal. No enlarged or calcified nodules. Lymph nodes: Unremarkable. No lymphadenopathy. Trachea: Visualized trachea is unremarkable. Lungs: Unremarkable as visualized. Bones/joints: Mild degenerative changes at C1-C2 and mid cervical spine. Vasculature: Mild atherosclerotic changes in the carotic arteries. Soft tissues: Unremarkable. No significant soft tissue swelling. IMPRESSION: 1. No soft tissue mass or bone destruction demonstrated. 2. Minor changes as described above. Electronically signed by: Ran Seo On 02/25/2021 18:11:02 PM
--- NOTE | 2021-02-25 18:14 | REPVR ---
PROCEDURE INFORMATION: Exam: CT Maxillofacial With Contrast Exam date and time: 02/25/2021 5:59 PM Age: 65 years old Clinical indication: Condition or disease; Cancer; Other: Throat/ soft palate; Prior surgery; Additional info: Soft palete CA ? mets TECHNIQUE: Imaging protocol: Computed tomography images of the face with intravenous contrast. Radiation optimization: All CT scans at this facility use at least one of these dose optimization techniques: automated exposure control; mA and/or kV adjustment per patient size (includes targeted exams where dose is matched to clinical indication); or iterative reconstruction. Contrast material: ISOVUE 370; Contrast volume: 75 ml; Contrast route: INTRAVENOUS (IV); COMPARISON: No relevant prior studies available. FINDINGS: Orbital cavity: Orbits are normal. Globes are unremarkable. Bones/joints: No acute fracture. Paranasal sinuses: Normal. No air-fluid levels. Mastoid air cells: Opacification of the right mastoid air cells. Opacification of the right middle ear cavity without ossicular dislocation or bone destruction. Findings most consistent with mastoiditis and otitis media. Cholesteatoma to be excluded clinically. Soft tissues: Unremarkable. IMPRESSION: 1. Opacification of the right mastoid air cells. Opacification of the right middle ear cavity without ossicular dislocation or bone destruction. Findings most consistent with mastoiditis and otitis media. Cholesteatoma to be excluded clinically. 2. Otherwise unremarkable. Electronically signed by: Ran Seo On 02/25/2021 18:13:48 PM
== END ==
LOC: M RAD 17:30
PROVIDERS: ATTEND General Practice
DX: C05.1 Malignant neoplasm of soft palate (principal)
CPT/HCPCS: 70487; 70491; Q9967

== ENCOUNTER → 2021-05-19 | Outpatient (CLI) | payer MEDICARE ==
[~2021-05-19] MED LIST changes: -ISOVUE-370 76% 100ML VIAL As Ordered ONE
--- NOTE | 2021-05-19 15:21 | RADONC ---
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 He completed chemoradiation 70 Gy in 35 fractions on 08/07/20. He is seen today for surveillance and survivorship care Diagnosis/Treatment History Oncologic History He has a remote history of tobacco use,having quit 24 years ago. He presented to his PCP Dr. Dai due to concerns of dysphagia and difficulty breathing when he turned his head from side to side. A CT scan was done on 04/06/20 which showed a large lesion in the soft palate on the right. He was referred to Dr. Moser who ordered A PET-CT done 04/17/20 which showed uptake in the lesion in the soft palate and tonsillar fossa on the right without concerning adenopathy. Dr. Moser biopsied the lesion on 04/21/20 and pathology revealed an HPV+ SCC. He underwent chemoradiation 70 Gy in 35 fractions with weekly cisplatin from 06/17/20-08/07/20. 10/26/20 PET-CT was negative for residual disease. Survivorship Test Due Next Last result Notes TSH, T4 6m post-tx, then q1y 02/202202/17/21 TSH 2.6 T4 0.9 WNL Carotid US q10 y post-tx 2030 Smoking cessation Assess annually if applicable N/A Quit previously CXR or screening CT q1y once CR confirmed 2021 CBC,CMP, Lipids q1y 02/202202/17/21 WNL Interval History Tayo feels well. He has no pain in the mouth. No problems swallowing. Minimal dry mouth. Appetite good, weight stable. Had tympanostomy tube placed last month with noticeable improvement in his congestion and hearing loss. Current Therapy Surveillance Stage Oropharynx HPV+ SCC [id number] Stage II Social History: Former smoker quit 20+ years ago, 24 pack year history, does not drink alcohol Allergies / Meds Allergies: Coded Allergies: No Known Allergies (Unverified , 03/13/19) Home Meds Reported Medications Esomeprazole Magnesium (Nexium) 40 Mg Capsule.dr, 1 CAP PO DAILY for 30 Days, #30 CAP 05/06/20 Review of Systems Review of Systems Constitutional: Denies: Fever, Weight Loss Eyes: Denies: Pain HEENT: Denies: Head Aches, Sinus Congestion, Post Nasal Drip, Sore Throat Skin: Reports: Rash (Recrudescent psosiasis) Pulmonary: Denies: Dyspnea, Cough Cardiovascular: Denies: Chest Pain, Palpitations Gastrointestinal: Denies: Abdominal Pain Hematologic: Denies: Bruising, Bleeding Excessively Endocrine: Denies: Cold Intolerance Musculoskeletal: Denies: Neck pain, Shoulder pain, Arm pain, Back pain, Leg pain, Joint pain Neurological: Denies: Weakness, Numbness Psych: Reports: Mood Normal Physical Examination Vital Signs Wt 168 lbs T 97.4 P 88 RR 16 BP 117/70 O2 100% Pain 0 Fatigue 1 General Exam: Alert, Cooperative, No Acute Distress Eye Exam: PERRLA, EOMI ENT EXAM: Atraumatic, Mucous membr. moist/pink, Other ENT (Complete oral cavity exam. Mucosa pink and moist, intact without visible lesions. Right tonsilar fossa defect stable. Uvula foreshortened. No palpable lesions in the tongue, FOM, gingiva, tonsilar fossae, BOT, gag intact. No palpable cervical adenopathy, laryngeal crepitus intact, no trismus. Mild sub-mental edema.) Chest Exam: Clear to auscultation, Normal air movement Heart Exam: Rate Normal, Regular Rhythm Abdomen Exam: Soft Extremity Exam: Negative: Edema Skin Exam: Nl turgor and temperature, Rash (There are raised plaques c/w psoriasis on the extensor surfaces of the elbows and on the shins BL) Neuro Exam: Normal Gait, Normal Speech, Strength at 5/5 X4 ext, Cranial Nerves 3-12 NL Psych Exam: Mental status NL Other Physical Findings Laryngoscopy: Tayo provided verbal consent to be scoped. He declined cetacaine. The scope was introduced into the right nare. It passed easily to the nasopharynx. The torus and eustachian tube orifice was normal appearing without edema. The pharyngeal recess was clear. The OPX was entered, there were no lesions at the tongue base or vallecula BL. The supraglottis was clear. The epiglottis was upright and sharp rimmed. The BL pyriform sinuses were clear. The larynx was freely mobile and without lesions. The scope was withdram and the patient tolerated the procedure well. Diagnostic and Laboratory Diagnostic Review Radiologic images, relevant labs and pathology reports were personally reviewed and discussed with Mr. Sidhu. Assessment and Plan Impression Assessment Mr. Sidhu is a 65 year old male with a history of smoking and a biopsy-proven HPV+ [id number] SCC of the right soft palate. He completed chemoradiation 70 Gy in 35 fractions on 08/07/20. He is seen today for surveillance and survivorship care. Tayo is doing well, he has no evidence of recurrence on exam today. He is not due for any survivorship care items today. I will see him back in 3 months. For his recrudescent psoriasis, I encouraged him to follow up with Dr. Dai (PCP). Likely this was under control when he was on remicade for his RA. He may benefit from resuming a biologic therapy. Performance Status ECOG 0 Plan Follow up in 3 months Mr. Sidhu was encouraged to call with questions or concerns in the interim period. Billing Statement Total time of [33] minutes was spent preparing for the visit [2], obtaining HPI [5], examining the patient [7], reviewing diagnostic tests [1], discussing management options [8], coordinating care [2], and writing this note [8]. JERE VARELA MD May 19, 2021 15:21
== END ==
LOC: M ONCR 13:40
PROVIDERS: ATTEND General Practice
DX: C05.1 Malignant neoplasm of soft palate (principal); L40.8 Other psoriasis; M06.9 Rheumatoid arthritis, unspecified; Z87.891 Personal history of nicotine dependence; Z92.21 Personal history of antineoplastic chemotherapy; Z92.3 Personal history of irradiation
CPT/HCPCS: 31575; G0463

== ENCOUNTER → 2021-08-17 | Outpatient (CLI) | payer MEDICARE ==
--- NOTE | 2021-08-17 13:55 | RADONC ---
Radiation Oncology Hx/FUP Radiation Oncology Hx/FUP Date of Service: Aug 17, 2021 Pt Identifier Ryan Sidhu is a 65 year old male seen for a followup visit today at the department of radiation oncology for a history of smoking and a biopsy-proven HPV+ [id number] SCC of the right soft palate. He completed chemoradiation 70 Gy in 35 fractions on 08/07/20. He is seen today for surveillance and survivorship care. Diagnosis/Treatment History Oncologic History He has a remote history of tobacco use,having quit 24 years ago. He presented to his PCP Dr. Dai due to concerns of dysphagia and difficulty breathing when he turned his head from side to side. A CT scan was done on 04/06/20 which showed a large lesion in the soft palate on the right. He was referred to Dr. Moser who ordered A PET-CT done 04/17/20 which showed uptake in the lesion in the soft palate and tonsillar fossa on the right without concerning adenopathy. Dr. Moser biopsied the lesion on 04/21/20 and pathology revealed an HPV+ SCC. He underwent chemoradiation 70 Gy in 35 fractions with weekly cisplatin from 06/17/20-08/07/20. 10/26/20 PET-CT was negative for residual disease. Survivorship Test Due Next Last result Notes TSH, T4 6m post-tx, then q1y 02/202202/17/21 TSH 2.6 T4 0.9 WNL Carotid US q10 y post-tx 2030 Smoking cessation Assess annually if applicable N/A Quit previously CXR or screening CT q1y once CR confirmed 02/2022 CBC,CMP, Lipids q1y 02/202202/17/21 WNL Interval History Tayo feels well. He is eating all foods without difficulty or dysphagia. He has been following with [facility] for his psoriasis, is on therapy now and doing well with improvement in his skin. He has upcoming follow up with cardiology. He saw Dr. Moser over the Fall and has an upcoming appointment this Spring. He does have some chronic neck pain, low neck and in the shoulders. No radiation down the arms, certain head movements incite this. No worse since completion of RT. Current Therapy Surveillance Stage Oropharynx HPV+ SCC [id number] Stage II Social History: Former smoker quit 20+ years ago, 24 pack year history, does not drink alcohol Allergies / Meds Allergies: Coded Allergies: No Known Allergies (Unverified , 03/13/19) Home Meds Reported Medications Esomeprazole Magnesium (Nexium) 40 Mg Capsule.dr, 1 CAP PO DAILY for 30 Days, #30 CAP 05/06/20 Review of Systems Review of Systems Constitutional: Denies: Fatigue, Weight Loss Eyes: Denies: Pain HEENT: Denies: Head Aches, Sore Throat Pulmonary: Denies: Dyspnea Cardiovascular: Denies: Chest Pain Hematologic: Denies: Bruising, Enlarged Lymph Nodes Endocrine: Denies: Cold Intolerance Musculoskeletal: Reports: Neck pain; Denies: Back pain Neurological: Denies: Weakness, Numbness Psych: Reports: Mood Normal Physical Examination Vital Signs Wt 178 lbs (from 168 lbs) T 97.2 P 95 RR 17 BP 108/67 O2 98% Pain 3 (neck/shoulders) Fatigue 0 General Exam: Alert, Cooperative, No Acute Distress Eye Exam: PERRLA, EOMI ENT EXAM: Atraumatic, Mucous membr. moist/pink; Negative: Pharynx Normal (Right sided soft palate defect stable, no ulcer ation or nodularity) Neck Exam: Supple; Negative: Lymphadenopathy, Other (No fibrosis BL necks. Mild submental edema. ) Chest Exam: Clear to auscultation Heart Exam: Rate Normal Abdomen Exam: Soft Extremity Exam: Negative: Edema Skin Exam: Nl turgor and temperature, Rash (Psoriasis lesions on the BL shins appear to be resolving) Neuro Exam: Normal Gait, Normal Speech, Cranial Nerves 3-12 NL Psych Exam: Mental status NL Other Physical Findings Laryngoscopy: Tayo provided verbal consent to be scoped. He declined cetacaine. The scope was passed in the right nare easily to the right nasopharynx. The torus tubarius appearing WNL. No nasopharyngeal lesions noted. The scope passed to the oropharynx. There are no lesions visible in the BL BOT or supraglottis. The epiglottis was sharp-rimmed and upright in orientation. The pyriform sinuses were clear. The glottis had no lesions and was freely mobile with phonation. The scope was withdrawn and Tayo tolerated the procedure well. Diagnostic and Laboratory Diagnostic Review Radiologic images, relevant labs and pathology reports were personally reviewed and discussed with Mr. Sidhu. Assessment and Plan Impression Assessment Mr. Sidhu is a 65 year old male with a history of smoking and a biopsy-proven HPV+ [id number] SCC of the right soft palate. He completed chemoradiation 70 Gy in 35 fractions on 08/07/20. He is seen today for surveillance and survivorship care. He has no evidence of disease on exam today. He has no apparent bothersome late sequelae of treatment. He is gaining weight. I discussed that as his neck pain predates RT and there is no fibrosis palpable in the neck (ROM intact) that his discomfort is likely arthritis related. He has no survivorship items due today. As he is >12 months removed from primary therapy and in remission, I will see him q4m for the next year and then extend to q6m beyond year 2. He agreed to this plan. Performance Status ECOG 0 Plan Follow up in 4 months Mr. Sidhu was encouraged to call with questions or concerns in the interim period. Billing Statement Total time of [32] minutes was spent preparing for the visit [1], obtaining HPI [7], examining the patient [7], reviewing diagnostic tests [2], discussing management options [6], coordinating care [2], and writing this note [7]. JERE VARELA MD Aug 17, 2021 13:55
== END ==
LOC: M ONCR 12:45
PROVIDERS: ATTEND General Practice
DX: C05.1 Malignant neoplasm of soft palate (principal); Z92.3 Personal history of irradiation; Z92.21 Personal history of antineoplastic chemotherapy; Z87.891 Personal history of nicotine dependence
CPT/HCPCS: 31575; G0463

== ENCOUNTER → 2021-12-28 | Outpatient (CLI) | payer MEDICARE ==
[~2021-12-28] MED LIST changes: +LOSA25TA13 PO; -LOSA25TA14 PO; -PROC10TA4 PO; +PROC10TA5 PO
[2021-12-28 15:58] LABS: THYROID STIMULATING HORMONE 1.48 uIU/ML (0.358-3.740)
== END ==
LOC: M ONCR 13:42
PROVIDERS: ATTEND General Practice
DX: C05.1 Malignant neoplasm of soft palate (principal); Z87.891 Personal history of nicotine dependence; Z92.21 Personal history of antineoplastic chemotherapy; Z92.3 Personal history of irradiation
CPT/HCPCS: 31575; 84439; 84443; G0463

== ENCOUNTER → 2022-05-31 | Outpatient (CLI) | payer MEDICARE | LOC: M ONCR 14:12 | PROVIDERS: ATTEND General Practice | DX: Z08 Encounter for follow-up examination after completed treatment for malignant neoplasm (principal); Z85.818 Personal history of malignant neoplasm of other sites of lip, oral cavity, and pharynx; Z79.899 Other long term (current) drug therapy; Z87.891 Personal history of nicotine dependence; Z92.21 Personal history of antineoplastic chemotherapy; Z92.3 Personal history of irradiation | CPT/HCPCS: 31575; G0463 ==

== ENCOUNTER → 2022-11-29 | Outpatient (CLI) | payer MEDICARE | LOC: M ONCR 13:44 | PROVIDERS: ATTEND General Practice | DX: Z08 Encounter for follow-up examination after completed treatment for malignant neoplasm (principal); Z85.818 Personal history of malignant neoplasm of other sites of lip, oral cavity, and pharynx; Z92.21 Personal history of antineoplastic chemotherapy; Z92.3 Personal history of irradiation; Z87.891 Personal history of nicotine dependence | CPT/HCPCS: 31575; G0463 ==

== ENCOUNTER → 2023-12-01 | Outpatient (CLI) | payer MEDICARE ==
[2023-12-01 15:33] LABS: FREE T4 0.99 NG/DL (0.89-1.76)
[2023-12-01 15:34] LABS: THYROID STIMULATING HORMONE 3.952 uIU/ML (0.55-4.78)
== END ==
LOC: M ONCR 13:51
PROVIDERS: ATTEND General Practice
DX: Z08 Encounter for follow-up examination after completed treatment for malignant neoplasm (principal); Z85.818 Personal history of malignant neoplasm of other sites of lip, oral cavity, and pharynx; M54.12 Radiculopathy, cervical region; Z87.891 Personal history of nicotine dependence; Z92.21 Personal history of antineoplastic chemotherapy; Z92.3 Personal history of irradiation
CPT/HCPCS: 31575; 36415; 84439; 84443; G0463

== ENCOUNTER → 2023-12-27 | Outpatient (REF) | payer MEDICARE ==
[2023-12-27 17:17] LABS: BASO # 0.1 10^3/uL (0.0-0.2); BASO % 0.7 % (0.0-1.0); EOS # 0.5 10^3/uL (0.0-0.5); EOS % 5.4 % (0.0-3.0); HEMATOCRIT 38.8 % (42.0-52.0); HEMOGLOBIN 12.8 g/dl (13.5-17.5); LYMPH # 0.6 10^3/uL (1.5-5.0); LYMPH % 5.8 % (24.0-44.0); MEAN CORPUSCULAR HEMOGLOBIN 30.4 pg (27.0-33.0); MEAN CORPUSCULAR VOLUME 92.2 fl (80.0-96.0); MONO # 0.6 10^3/uL (0.0-0.8); MONO % 6.1 % (2.0-8.0); NEUTROPHILS % 81.7 % (36.0-66.0); PLATELET COUNT, AUTOMATED 267 10^3/uL (150-450); RED BLOOD COUNT 4.21 10^6/uL (4.30-6.10); WHITE BLOOD COUNT 9.8 10^3/uL (4.0-10.0)
[2023-12-27 17:19] LABS: C REACTIVE PROTEIN QUANTITATIV < 0.40 MG/DL (<1.0)
[2023-12-27 17:21] LABS: ALKALINE PHOSPHATASE 139 U/L (46-116); ALT/SGPT 21 U/L (7.0-40); AST/SGOT 15 U/L (<34); BILIRUBIN,TOTAL 0.4 MG/DL (0.3-1.2); BLOOD UREA NITROGEN 13 MG/DL (9-23); CALCIUM LEVEL 10.2 MG/DL (8.3-10.6); CARBON DIOXIDE LEVEL 30 MMOL/L (20-31); CHLORIDE LEVEL 99 MMOL/L (98-107); CREATININE FOR GFR 0.93 MG/DL (0.70-1.30); GLOMERULAR FILTRATION RATE > 60.0 (>42); GLUCOSE, FASTING 186 MG/DL (74-106); POTASSIUM SERUM 4.4 MMOL/L (3.5-5.1); SODIUM LEVEL 137 MMOL/L (136-145); TOTAL PROTEIN 7.2 G/DL (5.7-8.2)
[2023-12-27 17:41] LABS: ERYTHROCYTE SEDIMENTATION RATE 29 mm/hr (0-20)
[2023-12-27 18:25] LABS: HEPATITIS B CORE ANTIBODY IGM NEGATIVE (NEGATIVE); HEPATITIS C VIRUS ABY INDEX 0.02 INDEX (<0.8)
== END ==
LOC: M SFHCRHEU 12:44
PROVIDERS: ATTEND Internal Medicine Rheumatology
DX: L40.50 Arthropathic psoriasis, unspecified (principal); L40.8 Other psoriasis; Z79.60 Long term (current) use of unspecified immunomodulators and immunosuppressants; Z01.89 Encounter for other specified special examinations

== ENCOUNTER → 2023-12-27 | Outpatient (CLI) | payer MEDICARE | LOC: M RAD 13:20 | PROVIDERS: ATTEND Internal Medicine | DX: M46.1 Sacroiliitis, not elsewhere classified (principal); M47.816 Spondylosis without myelopathy or radiculopathy, lumbar region; M19.041 Primary osteoarthritis, right hand; M19.042 Primary osteoarthritis, left hand; M19.071 Primary osteoarthritis, right ankle and foot; M19.072 Primary osteoarthritis, left ankle and foot; M47.812 Spondylosis without myelopathy or radiculopathy, cervical region; M99.51 Intervertebral disc stenosis of neural canal of cervical region; L40.50 Arthropathic psoriasis, unspecified; L40.8 Other psoriasis; Z79.60 Long term (current) use of unspecified immunomodulators and immunosuppressants ==

== ENCOUNTER → 2024-04-12 | Outpatient (CLI) | payer MEDICARE ==
[2024-04-13 06:38] LABS: T P ELECTROPHORESIS SO 7.5 g/dL (6.1-8.1)
[2024-04-16 07:57] LABS: ALBUMIN SPEP 4.4 g/dL (3.8-4.8); ALPHA-1-GLOBULINS SO 0.3 g/dL (0.2-0.3); ALPHA-2-GLOBULINS SO 0.8 g/dL (0.5-0.9); BETA 2 GLOBULIN 0.4 g/dL (0.2-0.5); BETA-GLOBULIN SO 0.5 g/dL (0.4-0.6); GAMMA GLOBULINS SO 1.2 g/dL (0.8-1.7)
[2024-04-16 10:37] LABS: PROTEIN CREATININE RATIO 173 mg/g creat (25-148); T PROTEIN CREATININE RATIO 0.173 (0.025-0.148); UPEP CREATININE 179 mg/dL (20-320); UPEP TOTAL PROTEIN 31 mg/dL (5-25)
[2024-04-16 13:16] LABS: UPEP ALBUMIN 52 %; URINE ALPHA 1 GLOBULIN 7 %; URINE ALPHA 2 GLOBULIN 12 %; URINE BETA GLOBULIN 15 %; URINE GAMMA GLOBULIN 15 %
== END ==
LOC: M LAB 10:11
PROVIDERS: ATTEND Internal Medicine Rheumatology
DX: L40.50 Arthropathic psoriasis, unspecified (principal)

== ENCOUNTER → 2024-06-07 | Outpatient (REF) | payer MEDICARE ==
[~2024-06-07] MED LIST changes: +ATOR80TA59; +BETA5OI; +GLIM2TAB29; +GLIM4TAB5; +LEVO25TA5; +METF10004; +METO1TAB87; +MIDO5TA; +NORT50CA; +NOXI1TAB PO; +SULF500T2; +VITA500C24 PO
== END ==
LOC: M LAB REF 10:50
PROVIDERS: ATTEND Specialist
DX: R80.9 Proteinuria, unspecified (principal)

== ENCOUNTER 2024-07-15 10:30 | Outpatient (CLI) | payer MEDICARE ==
[~2024-07-15] VITALS: Ht 172.7 cm; Wt 73.2 kg
[~2024-07-15 10:30] MED LIST changes: +ALBUTEROL SULFATE 2.5MG/0.5ML INH NEB SOLN INH PRN; +EPINEPHrine INJ 1 MG/ML 1ML AMP IM PRN; +diphenhydrAMINE 50MG/ML VIAL IV PRN; +methylPREDNISolone 125MG 2ML VIAL IV PRN
[2024-07-15 10:50] VITALS: BP 100/55; O2SAT 96
[2024-07-15] MEDS: diphenhydrAMINE 25MG PO PRIOR TO INFUSION PO ONE (11:02)
[2024-07-15] MEDS: ACETAMINOPHEN 650MG ER TAB (TYLENOL ARTHRITIS) PO ONE (11:02)
[2024-07-15] MEDS: INFLIXIMAB BIOSIMILAR 200 MG in NS 230 ML IV ONE (11:26)
[2024-07-15 12:00] VITALS: BP 116/58; O2SAT 95
[2024-07-15 12:30] VITALS: BP 117/59; O2SAT 95
[2024-07-15 13:40] VITALS: BP 111/56; O2SAT 98
== END 2024-07-15 13:50 ==
LOC: M INFU 10:30
PROVIDERS: ATTEND Internal Medicine Rheumatology
DX: L40.50 Arthropathic psoriasis, unspecified (principal); C10.9 Malignant neoplasm of oropharynx, unspecified
CPT/HCPCS: 83521; 86335; 96365; 96366; Q5103

== ENCOUNTER → 2024-07-15 | Outpatient (REF) | payer MEDICARE | LOC: M LAB REF 11:59 | PROVIDERS: ATTEND Specialist | DX: C10.9 Malignant neoplasm of oropharynx, unspecified (principal) ==

== ENCOUNTER 2024-07-29 10:30 | Outpatient (CLI) | payer MEDICARE ==
[~2024-07-29] VITALS: Ht 172.7 cm; Wt 72.7 kg
[2024-07-29 10:25] VITALS: BP 120/62; O2SAT 97
[2024-07-29] MEDS: ACETAMINOPHEN 650MG ER TAB (TYLENOL ARTHRITIS) PO ONE (11:18)
[2024-07-29] MEDS: diphenhydrAMINE 25MG PO PRIOR TO INFUSION PO ONE (11:18)
[2024-07-29] MEDS: INFLIXIMAB BIOSIMILAR 200 MG in NS 230 ML IV ONE (11:30)
[2024-07-29 12:00] VITALS: BP 113/61; O2SAT 96
[2024-07-29 13:00] VITALS: BP 110/58; O2SAT 98
[2024-07-29 13:30] VITALS: BP 108/60; O2SAT 100
== END 2024-07-29 13:40 ==
LOC: M INFU 10:30
PROVIDERS: ATTEND Internal Medicine Rheumatology
DX: L40.50 Arthropathic psoriasis, unspecified (principal)
CPT/HCPCS: 96365; 96366; Q5103

== ENCOUNTER → 2024-12-04 | Outpatient (CLI) | payer MEDICARE ==
[~2024-12-04] MED LIST changes: -ALBUTEROL SULFATE 2.5MG/0.5ML INH NEB SOLN INH PRN; -EPINEPHrine INJ 1 MG/ML 1ML AMP IM PRN; +FAMO40TA3; +ISOVUE-370 76% 100ML VIAL As Ordered ONE; -diphenhydrAMINE 50MG/ML VIAL IV PRN; -methylPREDNISolone 125MG 2ML VIAL IV PRN
== END ==
LOC: M RAD 13:59
PROVIDERS: ATTEND Specialist
DX: C10.9 Malignant neoplasm of oropharynx, unspecified (principal); M50.322 Other cervical disc degeneration at C5-C6 level; R91.8 Other nonspecific abnormal finding of lung field
CPT/HCPCS: 70491; Q9967

== ENCOUNTER → 2024-12-04 | Outpatient (CLI) | payer MEDICARE ==
[~2024-12-04] MED LIST changes: -ISOVUE-370 76% 100ML VIAL As Ordered ONE
== END ==
LOC: M ONCR 13:10
PROVIDERS: ATTEND General Practice
DX: C10.9 Malignant neoplasm of oropharynx, unspecified (principal); M50.322 Other cervical disc degeneration at C5-C6 level; R91.8 Other nonspecific abnormal finding of lung field; Z92.21 Personal history of antineoplastic chemotherapy; Z92.3 Personal history of irradiation; Z87.891 Personal history of nicotine dependence; Z79.84 Long term (current) use of oral hypoglycemic drugs; Z79.890 Hormone replacement therapy; Z79.899 Other long term (current) drug therapy
CPT/HCPCS: 31575; G0463

== ENCOUNTER → 2024-12-17 | Outpatient (CLI) | payer MEDICARE | LOC: M PLARAD 11:14 | PROVIDERS: ATTEND Specialist | DX: C09.9 Malignant neoplasm of tonsil, unspecified (principal) | CPT/HCPCS: 78815; A9552 ==

== ENCOUNTER 2025-01-08 10:52 | Day surgery (SDC) | payer MEDICARE ==
[~2025-01-08] VITALS: Ht 172.7 cm; Wt 70.0 kg
[~2025-01-08 10:52] MED LIST changes: -ATOR80TA59; +ATOR80TA59 PO; -BETA5OI; +BETA5OI TOP; -FAMO40TA3; +FAMO40TA3 PO; +FERR325T3 PO; -GLIM4TAB5; +GLIM4TAB5 PO; +LEVO50TA5 PO; +LIDOCAINE 2% 100MG/5ML SDV (FOR ANES.) As Ordered ONE; +MAGN400C2 PO; -METF10004; -METO1TAB87; +METO1TAB87 PO; +MIDO10TA3 PO; -NORT50CA; +NORT50CA PO; +PANT40TA29 PO; -SULF500T2; +propofoL 200 MG/20 ML VIAL As Ordered ONE
[2025-01-08] MEDS ORDERED: fentaNYL 100 MCG/2 ML INJECTION As Ordered ONE (11:31)
[2025-01-08 13:35] VITALS: TEMP 97.6
[2025-01-08 13:54] VITALS: BP 110/62; O2SAT 95
== END 2025-01-08 14:02 | disposition home or self-care (01) ==
LOC: M OPP 10:52
PROVIDERS: ATTEND Internal Medicine Gastroenterology
DX: D50.9 Iron deficiency anemia, unspecified (principal); K21.00 Gastro-esophageal reflux disease with esophagitis, without bleeding; K44.9 Diaphragmatic hernia without obstruction or gangrene; K29.50 Unspecified chronic gastritis without bleeding; R13.10 Dysphagia, unspecified; K64.0 First degree hemorrhoids; K57.30 Diverticulosis of large intestine without perforation or abscess without bleeding; I10 Essential (primary) hypertension; E11.9 Type 2 diabetes mellitus without complications; L40.50 Arthropathic psoriasis, unspecified; Z79.84 Long term (current) use of oral hypoglycemic drugs; Z79.899 Other long term (current) drug therapy; Z85.818 Personal history of malignant neoplasm of other sites of lip, oral cavity, and pharynx; Z92.3 Personal history of irradiation; Z92.21 Personal history of antineoplastic chemotherapy; Z90.89 Acquired absence of other organs; Z87.891 Personal history of nicotine dependence
CPT/HCPCS: 43239; 45378; 88305; J3010

== ENCOUNTER 2025-04-28 11:06 | Outpatient (CLI) | payer MEDICARE ==
[~2025-04-28] VITALS: Ht 172.7 cm; Wt 77.7 kg
[~2025-04-28 11:06] MED LIST changes: +ALBUTEROL SULFATE 2.5 MG/0.5 ML INH CONCENTRATE NEB SOLN INH PRN; +EPINEPHrine INJ 1 MG/ML 1ML AMP IM PRN; -LIDOCAINE 2% 100MG/5ML SDV (FOR ANES.) As Ordered ONE; +diphenhydrAMINE 50 MG/ML VIAL IV PRN; -propofoL 200 MG/20 ML VIAL As Ordered ONE
[2025-04-28 11:30] VITALS: BP 150/84; O2SAT 96
[2025-04-28] MEDS: ACETAMINOPHEN 650MG PO PRIOR TO INFUSION PO ONE (11:53)
[2025-04-28] MEDS: diphenhydrAMINE 25MG PO PRIOR TO INFUSION PO ONE (11:53)
[2025-04-28] MEDS: INFLIXIMAB BIOSIMILAR 200 MG in NS 230 ML IV ONE (12:18)
[2025-04-28 12:30] VITALS: BP 105/58; O2SAT 97
[2025-04-28 12:45] VITALS: BP 115/61; O2SAT 96
[2025-04-28 13:15] VITALS: BP 110/59; O2SAT 98
[2025-04-28 13:45] VITALS: BP 119/64; O2SAT 98
[2025-04-28 14:33] VITALS: BP 112/64; O2SAT 99
== END 2025-04-28 14:35 | disposition home or self-care (01) ==
LOC: M INFU 11:06
PROVIDERS: ATTEND Internal Medicine Rheumatology
DX: L40.50 Arthropathic psoriasis, unspecified (principal)
CPT/HCPCS: 96413; 96415; Q5103

== ENCOUNTER 2025-06-24 10:37 | Outpatient (CLI) | payer MEDICARE ==
[~2025-06-24] VITALS: Ht 172.7 cm; Wt 76.8 kg
[2025-06-24 11:35] VITALS: BP 108/61; O2SAT 95
[2025-06-24] MEDS: ACETAMINOPHEN 650MG PO PRIOR TO INFUSION PO ONE (11:41)
[2025-06-24] MEDS: diphenhydrAMINE 25MG PO PRIOR TO INFUSION PO ONE (11:41)
[2025-06-24] MEDS: INFLIXIMAB BIOSIMILAR 200 MG in NS 230 ML IV ONE (12:33)
[2025-06-24 12:50] VITALS: BP 128/68; TEMP 97; O2SAT 97
[2025-06-24 13:55] VITALS: BP 116/62; O2SAT 97
== END 2025-06-24 13:54 | disposition home or self-care (01) ==
LOC: M INFU 10:37
PROVIDERS: ATTEND Internal Medicine Rheumatology
DX: L40.50 Arthropathic psoriasis, unspecified (principal)
CPT/HCPCS: 96413; G0463; Q5103

== ENCOUNTER 2025-08-19 09:45 | Outpatient (CLI) | payer MEDICARE ==
[~2025-08-19] VITALS: Ht 172.7 cm; Wt 80.5 kg
[~2025-08-19 09:45] MED LIST changes: -ALBUTEROL SULFATE 2.5 MG/0.5 ML INH CONCENTRATE NEB SOLN INH PRN; -EPINEPHrine INJ 1 MG/ML 1ML AMP IM PRN; -diphenhydrAMINE 50 MG/ML VIAL IV PRN
[2025-08-19 09:55] VITALS: BP 142/68; O2SAT 97
[2025-08-19] MEDS: ACETAMINOPHEN 650 MG ER TAB PO ONE (09:58)
[2025-08-19] MEDS: diphenhydrAMINE 25MG PO PRIOR TO INFUSION PO ONE (09:59)
[2025-08-19] MEDS: inFLIXimab INJECTION 400 MG in NS 210 ML IV ONE (10:35)
[2025-08-19 11:30] VITALS: BP 108/59; O2SAT 98
[2025-08-20] MEDS ORDERED: remicade (09:53)
== END 2025-08-19 11:30 | disposition home or self-care (01) ==
LOC: M INFU 09:45
PROVIDERS: ATTEND Internal Medicine Rheumatology
DX: L40.50 Arthropathic psoriasis, unspecified (principal)
CPT/HCPCS: 96413; J1745